=== PATIENT | female | born 1975 | race Caucasian/White ===

== ENCOUNTER 2017-04-07 16:26 | Observation (INO) ==
--- NOTE | 2017-04-07 16:43 | Emergency Department Note ---
Disposition Clinical Impression: Seizure, Abnormal EKG Chest pain Qualifiers: Chest pain type: unspecified Qualified Code(s): R07.9 - Chest pain, unspecified Disposition: Admitted As Inpatient Condition: Fair Referrals: NONE,PCP [Non-Partnered Physician] - Forms: ED Satisfaction Letter Time of Disposition: 19:48 Chest Pain HPI - General Chief Complaint: ED Chest Pain Stated Complaint: chest pain Time Seen by Provider: 04/07/17 16:26 Source: patient, EMS Mode of arrival: EMS Limitations: no limitations Vital Signs Reviewed: Yes Nursing Notes Reviewed: Yes - History of Present Illness HPI Narrative: Patient is a 41-year-old female with past medical history of seizures. She follows with Dr. Avalos, takes gabapentin chronically. She does not take any other medications for seizures. She says that she has one several months without seizures. However, 3 weeks ago, she had a tonic-clonic seizure. She also had a seizure today around 1 PM. This was witnessed by her . notes tonic-clonic seizure activity for a couple minutes, the patient did not hit her head, did not hit her neck. He said that he walked in, patient was staring into space, appeared confused, he helped lay her down and then she went into tonic-clonic motion. She did not lose bowel or bladder control, did not bite her tongue. She is currently postictal on presentation via EMS. said that usually with seizures, he keeps her home until she clears her postictal state. However, the patient was complaining of generalized chest pain so he brought her in for evaluation. He does note that she has fractured her sternum in the past during a seizure. The patient herself denies any shortness breath, nausea, vomiting, fevers, diarrhea, abdominal pain. Severity scale (1-10): 5 - Related Data Allergies Allergy/AdvReac Type Severity Reaction Status Date / Time phenazopyridine Allergy Rash Verified 09/01/15 14:27 [From Pyridium] sulfamethoxazole Allergy Rash Verified 09/01/15 14:27 [From Bactrim] trimethoprim [From Bactrim] Allergy Rash Verified 09/01/15 14:27 NSAIDS (Non-Steroidal AdvReac See Verified 09/01/15 14:27 Anti-Inflamma Comments All systems ED: reviewed and negative except as stated. Constitutional: Denies: fever Cardiovascular: Reports: chest pain. Denies: palpitations Respiratory: Denies: cough, dyspnea, wheezes Gastrointestinal: Denies: abdominal pain, nausea, vomiting, diarrhea Musculoskeletal: Reports: neck pain Neurological: Denies: headache, weakness, numbness, paresthesias Chest Pain PMH - Past Medical History Medical history: Reports: hypertension, seizures Psychiatric history: Reports: depression - Social History Smoking Status: Former smoker Alcohol use: Reports: none Drug use: Reports: none Physical Exam - General Limitations: no limitations General appearance: alert, in no apparent distress - Head Head exam: atraumatic, normocephalic, normal inspection - Eye Eye exam: Present: normal appearance, PERRL, EOMI - ENT ENT exam: normal exam, normal oropharynx, mucous membranes moist - Neck Neck exam: Present: normal inspection, full ROM, trachea midline, tenderness ( paraspinal muscle and trapezius muscle tenderness bialterally. ) - Chest Chest inspection: Present: normal inspection, symmetric chest wall rise, tenderness (generalzied tenderness of entire chest, reproduces the pain that patient is experiencing) - Respiratory Respiratory exam: Present: normal lung sounds bilaterally - Cardiovascular Cardiovascular exam: Present: regular rate, normal rhythm, normal heart sounds - Abdominal Exam Abdominal exam: Present: soft, Non-Tender. Absent: tenderness, distention, guarding, rebound, rigidity - Extremities Exam Extremities exam: Present: normal inspection, full ROM. Absent: tenderness, pedal edema - Neurological Exam Neurological exam: Present: alert, oriented X3, other (mildly slow at responding to questions, but alert and oriented x 3). Absent: motor sensory deficit - Psychiatric Psychiatric exam: Present: normal affect, normal mood - Skin Skin exam: Present: warm, dry, intact, normal color Course Course Narrative: Vitals within normal limits. No focal neurologic deficit on exam. Patient is alert and oriented 3. However, she is mildly slow in answering questions. She has reproducible chest pain on exam. This is likely from muscle contractions during her seizure. However, we will obtain EKG and chest x-ray. is at bedside and is agreeable with this plan. 19:25 chest x-ray negative for any acute cardiopulmonary process or obvious fracture. CBC and BMP within normal limits. Troponin negative at 0.00. EKG and repeat EKG showed ST elevation in lead 3, aVF, V5, V6. However, these elevations were not greater than or equal to 1 mm. These EKGs were sent to and discussed with Dr. Bethea, he did not feel that the EKG met STEMI criteria at this time. He believed that his possibly secondary to postictal state. He recommended that the patient be admitted, given aspirin and started on a heparin drip just in case. We will act as a consult in the morning. Will admit to medicine for further care. Chest X-Ray 04/07/17 16:43 IMPRESSION: No acute cardiopulmonary disease. D/ / 04/07/2017 17:02:41 Chaka Eckert MD / [facility] Interpreting Provider: Chaka Eckert MD Vital Signs Temperature 98.2 F 04/07/17 16:33 Pulse Rate 72 04/07/17 16:33 Respiratory Rate 18 04/07/17 16:33 Blood Pressure 103/71 04/07/17 16:33 O2 Sat by Pulse Oximetry 98 04/07/17 16:33 Temperature 98.2 F 04/07/17 16:33 Pulse Rate 72 04/07/17 16:33 Respiratory Rate 18 04/07/17 16:33 Blood Pressure 103/71 04/07/17 16:33 O2 Sat by Pulse Oximetry 98 04/07/17 16:33 Oxygen Delivery Oxygen Delivery Room Air Chest Pain - MDM Narrative Medical decision making narrative: chest x-ray negative for any acute cardiopulmonary process or obvious fracture. CBC and BMP within normal limits. Troponin negative at 0.00. EKG and repeat EKG showed ST elevation in lead 3, aVF, V5, V6. However, these elevations were not greater than or equal to 1 mm. These EKGs were sent to and discussed with Dr. Bethea, he did not feel that the EKG met STEMI criteria at this time. He believed that his possibly secondary to postictal state. He recommended that the patient be admitted, given aspirin and started on a heparin drip just in case. We will act as a consult in the morning. Will admit to medicine for further care. - Medical Records Medical records reviewed: Yes I reviewed the patient's medical records. - Lab Data Lab results reviewed: Yes I reviewed the patient's lab results. Result diagrams: 04/07/17 17:26 04/07/17 17:26 Lab Results 04/07/17 04/07/17 04/07/17 Range/Units 17:26 17:26 17:26 WBC 7.7 (4.3-11.1) K/mcL RBC 4.24 (3.82-4.97) M/mcL Hgb 11.7 (11.5-15.4) g/dL Hct 36.7 (35.3-44.9) % MCV 86.6 (83.0-100.0) fL MCH 27.6 L (28.0-33.3) pg MCHC 31.9 (31.6-35.5) g/dL RDW 13.2 (11.5-14.5) % Plt Count 217 (140-400) K/mcL MPV 10.1 (9.4-12.4) fL Immature Gran % 0.3 (0-4) % Seg Neutrophils % 74.5 % Lymphocytes % 19.3 % Monocytes % 4.8 % Eosinophils % 0.6 % Basophils % 0.5 % Neutrophils # 5.7 (1.6-8.9) K/mcL Lymphocytes # 1.5 (0.6-4.6) K/mcL Monocytes # 0.4 (0.0-1.3) K/mcL Eosinophils # 0.1 (0.0-0.6) K/mcL Basophils # 0.0 (0.0-0.2) K/mcL Sodium 138 (136-145) mEq/L Potassium 4.4 (3.5-4.5) mEq/L Chloride 108 (98-109) mEq/L Carbon Dioxide 24 (19-29) mEq/L BUN 14 (7-20) mg/dL Creatinine 0.85 (0.57-1.11) mg/dL Est GFR ( Amer) > 60 (> 60) Est GFR (Non-Af Amer) > 60 (> 60) BUN/Creatinine Ratio 16 (6-26) Glucose 90 (70-99) mg/dL Calculated Osmolality 286 (280-300) Calcium 8.7 (8.6-10.8) mg/dL Troponin I 0.00 (0-0.03) ng/mL - Radiology Data Radiology results reviewed: Yes I reviewed the patient's radiology results. Chest X-Ray 04/07/17 16:43 IMPRESSION: No acute cardiopulmonary disease. D/ / 04/07/2017 17:02:41 Chaka Eckert MD / [facility] Interpreting Provider: Chaka Eckert MD - EKG Data EKG attestation: Yes I reviewed and interpreted this EKG. EKG results narrative: 04/07/2017 at 16:42. Normal sinus rhythm. Rate 65. OH 142. QRS 88. QTC 383. There was ST elevation in lead 3, aVF, V5, V6, however, they were not greater or equal to 1 mm. No reciprocal changes. 04/07/2017 at 18:22. Sinus bradycardia. Rate 57. OH 146. QRS 84. QTC 392. ST elevation in 3, aVF, V5, V6 these elevations are not greater than 1 mm, no reciprocal changes. Julita - Julita Situation: Demographics, MOA Background: Presenting Complaint, Relevant PMH, Meds, & Allergies Assessment: Vital Signs, Course and respsone to treatment, Exam Concerns, Patient/Family Expectation, Pertinant Lab Results Recommendation: Barrier(s) to disposition, Recommendation based on pending studies, treatments, or consults Julita Report Given to: Dr. Sundar Cancino Repor Time: 19:48
--- NOTE | 2017-04-07 17:09 | Emergency Department Note ---
START Narrative - START START: I examined this patient and my medical decision-making was reviewed with the Resident Physician. I agree with the documented findings, disposition and treatment plan as described except to the extent set forth below. 41-year-old female presents emergency room after a seizure. Last a few minutes at home and was witnessed by family members. She has a history of seizure disorders. She takes Neurontin for this. She did not take it today. Patient' s been complaining of chest discomfort secondary to her seizure. She states this is normal for her after a seizure that she has had a previous sternal fracture. The seizures seem to mimic or exacerbate old pain. Her EKG shows some questionable ST elevation in leads 3 and aVF. She is not having any cardiac chest pain. All of her chest discomfort seems to be more musculoskeletal in nature. She has no other associated symptoms to indicate an ACS presentation. She had no chest pain prior to her seizure today. She did not fall. There is no trauma today. We will check some cardiac labs nonetheless.
[2017-04-07 17:38] LABS: Basophils % 0.5 %; Eosinophils # 0.1 K/mcL (0.0-0.6); Eosinophils % 0.6 %; Hematocrit 36.7 % (35.3-44.9); Hemoglobin 11.7 g/dL (11.5-15.4); Immature Granulocytes % 0.3 % (0-4); Lymphocytes # 1.5 K/mcL (0.6-4.6); Lymphocytes % 19.3 %; Mean Corpuscular HGB Conc 31.9 g/dL (31.6-35.5); Mean Corpuscular Hemoglobin 27.6 pg (28.0-33.3); Mean Corpuscular Volume 86.6 fL (83.0-100.0); Mean Platelet Volume 10.1 fL (9.4-12.4); Monocytes # 0.4 K/mcL (0.0-1.3); Monocytes % 4.8 %; Neutrophils # 5.7 K/mcL (1.6-8.9); Platelet Count 217 K/mcL (140-400); Red Blood Count 4.24 M/mcL (3.82-4.97); Red Cell Distribution Width 13.2 % (11.5-14.5); Segmented Neutrophils % 74.5 %
[2017-04-07] MEDS ORDERED: *HR* Morphine 2 MG/ML SYRINGE IVP ONE ×2 (17:45→19:21)
[2017-04-07 17:47] LABS: BUN/Creatinine Ratio 16 (6-26); Blood Urea Nitrogen 14 mg/dL (7-20); Calcium 8.7 mg/dL (8.6-10.8); Carbon Dioxide 24 mEq/L (19-29); Chloride 108 mEq/L (98-109); Glucose 90 mg/dL (70-99); Osmolality,Calculated 286 (280-300); Potassium 4.4 mEq/L (3.5-4.5); Sodium 138 mEq/L (136-145); eGFR For African Americans > 60 (> 60); eGFR For Non-African Americans > 60 (> 60)
[2017-04-07] MEDS ORDERED: *HR* Heparin 5,000 UNIT/ML VIAL IVP ONE (19:22)
[2017-04-07] MEDS ORDERED: *HR* Heparin 5,000 UNIT/ML VIAL IVP PRN ×2 (19:22)
[2017-04-07] MEDS ORDERED: Heparin 25,000 UNIT/500 ML D5W 25,000 UNIT/500 ML MLS IVC SCH (19:30)
[2017-04-07] MEDS ORDERED: Aspirin 325 MG TABLET PO ONE (19:43)
--- NOTE | 2017-04-07 19:55 | Internal Med History&Physical ---
Date of Encounter: 04/07/17 Time of Encounter: 19:55 Assessment and Plan (1) Chest pain Current visit: Yes Status: Acute CXR negative for any acute cardiopulmonary process or obvious fracture. Patient previously fractured her sternum a seizure. Chest pain reproducible with chest palpation on exam. Given Flexeril. Patient given ASA. Initial Troponin negative at 0.00, second troponin 0.01 EKG revealed less than or equal to [address] elevation in lead 3, aVF, V5, V6. EKGs findings sent to and discussed with Cardiology/ Dr. Bethea, he did not feel that the EKG met STEMI criteria at this time. 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 Continue to trend serial troponins Cardiology consulted Qualifiers: Chest pain type: unspecified Qualified Code(s): R07.9 - Chest pain, unspecified (2) Seizure Current visit: Yes Status: Acute Her last seizure was 3 weeks ago and she is currently on Gabapentin. Her neurologist is Dr. Avalos and she reports seizures due to hypoglycemia in the past. CT brain negative Continue home Gabapentin Continue accu checks Ativan prn seizures Neurology consulted (3) DVT prophylaxis Current visit: Yes Status: Acute Heparin ggt Internal Medicine - H&P: HPI Chief complaint: CP Admitted From: Home Plans for Post Hospital Care: Home History of present illness: Ms. Joy is a 41 year old female with a PMH of seizure disorder, migraines, cardiac ablation, HTN, gastric bypass, and depression that presented from home complaining of chest pain after having a seizure prior to arrival. Her reported patient was staring into space, appeared confused, and then started having tonic-clonic motion for a couple minutes after he lowered her to the floor. Her reported usually being able to monitor her at home after a seizure until her postical state clears but this time he was concerned because she reported constant, generalized 5/10 severity chest pain that radiated to her bilateral shoulders. Movement makes CP worse and patient reports significance amount of stress today related to school. Of note, patient previously fractured her sternum a seizure. Her last seizure was 3 weeks ago and she is currently on Gabapentin. Her neurologist is Dr. Avalos and she reports seizures due to hypoglycemia in the past. 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 Patient denies fever, chills, shortness breath, nausea, vomiting, diarrhea, abdominal pain, loss of bowel or bladder control, biting her tongue, h/o blood clots, or any head or neck trauma. Past Med Surg Social Fam HX - Past Medical History Medical history: hypertension, seizures Psychiatric history: depression - Past Surgical History Surgical History: other (ruptured IVC filter removal, cardiac ablation), bariatric surgery - Social History Smoking Status: Former smoker Smokeless Tobacco Status: No Alcohol use: none Drug use: none - Family History Mother Living Status: Age at : 50 Cause of : Kidney Failure Hx Family Cardiac Disorders: Yes (CHF, NM, HTN, Pacemaker) Hx Family Respiratory Disorders: No Hx Family Cancer: No Hx Family GI Disorders: No Hx Family Genitourinary Disorders: Yes (Kidney Failure) Hx Family Endocrine Disorder: Yes (Thyroid disease) Hx Family Musculoskeletal Disorders: No Hx Family Neuromuscular Disorders: No Hx Family Neurologic Disorders: No Hx Family HEENT Disorders: No Hx Family Autoimmune Disorders: No Hx Family Reproductive Disorders: No Hx Family Psychosocial Disorders: No Hx Family Medical Disorders: No Maternal Grandmother Hx Family Cardiac Disorders: Yes (Valve replacement) Hx Family Respiratory Disorders: No Hx Family Cancer: Yes (Leukemia) Hx Family GI Disorders: No Hx Family Genitourinary Disorders: No Hx Family Endocrine Disorder: Yes (DM) Hx Family Musculoskeletal Disorders: No Hx Family Neuromuscular Disorders: No Hx Family Neurologic Disorders: No Hx Family HEENT Disorders: No Hx Family Autoimmune Disorders: No Hx Family Reproductive Disorders: No Hx Family Psychosocial Disorders: No Hx Family Medical Disorders: No Father Hx Family Cardiac Disorders: Yes Paternal Grandfather Hx Family Respiratory Disorders: Yes (TB) Internal Medicine - H&P: Meds Gabapentin [Neurontin] 300 mg PO BID 04/07/17 [History] Metoprolol XL (24 HR) Succ [Toprol XL] 25 mg PO DAILY 04/07/17 [History] Omeprazole [PriLOSEC] 20 mg PO DAILY 04/07/17 [History] 3 Allergy/AdvReac Type Severity Reaction Status Date / Time phenazopyridine Allergy Rash Verified 09/01/15 14:27 [From Pyridium] sulfamethoxazole Allergy Rash Verified 09/01/15 14:27 [From Bactrim] trimethoprim [From Bactrim] Allergy Rash Verified 09/01/15 14:27 NSAIDS (Non-Steroidal AdvReac See Verified 09/01/15 14:27 Anti-Inflamma Comments All Systems PM: A 10-system review of systems was performed and is negative for pertinent findings except as documented above in the HPI. - Constitutional Constitutional: weakness, no anorexia, no chills, no fever(s), no falls, no weight gain, no weight loss - EENT Eyes: no change in vision, no loss of vision Nose, mouth and throat: no bleeding gums, no epistaxis, no mouth lesions, no neck mass, no neck pain, no tongue swelling - Cardiovascular Cardiovascular ROS IM: chest pain, palpitations - Respiratory Respiratory: no dyspnea, no excessive phlegm production - Gastrointestinal Gastrointestinal: no abdominal pain, no diarrhea, no nausea, no vomiting - Genitourinary Genitourinary: no dysuria, no urinary frequency, no urinary urgency - Musculoskeletal Musculoskeletal ROS IM: back pain, no numbness, no tingling - Integumentary Integumentary IM: no erythema, no new lesions, no rash - Neurological Neurological ROS: convulsions, no abnormal hearing, no loss of vision, no numbness, no paresthesias, no weakness - Psychiatric Psychiatric: anxiety, no depression - Endocrine Endocrine IM: no polydipsia, no polyphagia, no polyuria - Allergic/Immunologic Allergic/Immunologic: no tongue swelling - Constitutional Vitals: Temp Pulse Resp BP Pulse Ox 98.2 F 72 18 103/71 98 04/07/17 16:33 04/07/17 16:33 04/07/17 16:33 04/07/17 16:33 04/07/17 16:33 General appearance: Present: cooperative, mild distress, A&O X 3, pleasant, answers questions appropriately - Head Head exam: Present: atraumatic, normal inspection, normocephalic - Eye Eye exam: Present: EOMI, PERRL - ENT ENT exam: Present: mucous membranes moist, normal oropharynx - Neck Neck exam general surgery: Present: normal inspection, supple. Absent: lymphadenopathy, tenderness, nuchal rigidity - Respiratory Respiratory exam: Present: CTAB. Absent: wheezes - Cardiovascular Cardiovascular exam: Present: RRR, +S1, +S2 Additional comments: mild chest wall TTP posteriorly - GI/Abdominal GI/Abdominal exam: Present: normal bowel sounds, soft. Absent: guarding, tenderness - Extremities Exam Extremities exam: Present: normal capillary refill, warm. Absent: pedal edema, tenderness - Back Exam Back exam: Present: normal inspection, paraspinal tenderness, tenderness (T- spine) - Neurological Exam Neurological exam: Present: alert, no focal deficits, strengths equal and symetr throughout. Absent: altered, speech deficit - Psychiatric Psychiatric exam: Present: anxious, normal mood - Skin Skin exam: Present: dry, intact, warm Internal Med - H&P Results - Labs CBC & Chem 7: 04/07/17 19:46 04/07/17 17:26 Labs: Short CBC 04/07/17 Range/Units 17:26 WBC 7.7 (4.3-11.1) K/mcL Hgb 11.7 (11.5-15.4) g/dL Hct 36.7 (35.3-44.9) % Plt Count 217 (140-400) K/mcL Neutrophils # 5.7 (1.6-8.9) K/mcL BMP 04/07/17 17:26 Sodium 138 Potassium 4.4 Chloride 108 Carbon Dioxide 24 BUN 14 Creatinine 0.85 Glucose 90 Calcium 8.7 Cardiac Enzymes 04/07/17 Range/Units 17:26 Troponin I 0.00 (0-0.03) ng/mL - EKG Data -: EKG Interpreted by Myself EKG shows normal: sinus rhythm (Rate 65. [place] 142. QRS 88. QTC 383. ), axis, intervals, QRS complexes, ST-T waves (less than than or equal to [address] elevation in leads 3, V5, V6, and aVF) - Impressions ITS Impressions Chest X-Ray 04/07/17 16:43 IMPRESSION: No acute cardiopulmonary disease. D/ / 04/07/2017 17:02:41 Chaka Eckert MD / [facility] Interpreting Provider: Chaka Eckert MD
[2017-04-07] MEDS ORDERED: Nitroglycerin 0.4 MG TAB.SUBL SL PRN (20:14)
[2017-04-07 20:31] LABS: Mean Corpuscular HGB Conc 32.4 g/dL (31.6-35.5); Mean Corpuscular Hemoglobin 28.1 pg (28.0-33.3); Mean Platelet Volume 10.4 fL (9.4-12.4); Platelet Count 189 K/mcL (140-400); Red Blood Count 3.91 M/mcL (3.82-4.97); Red Cell Distribution Width 13.6 % (11.5-14.5)
[2017-04-07 20:37] LABS: INR 1.1; Prothrombin Time 11.6 Seconds (9.4-12.1)
[2017-04-07 20:39] LABS: Activated Partial Thrombo Time 26.6 Seconds (26.0-36.0)
[2017-04-07] MEDS ORDERED: *HR* LORazepam 2 MG/ML VIAL IVP PRN (21:39)
[2017-04-07] MEDS: Gabapentin 300 MG CAPSULE PO SCH (22:11)
--- NOTE | 2017-04-07 23:14 | Event Note ---
Date of Encounter: 04/07/17 Time of Encounter: 23:12 Patient and examined with medical transcriptionist. Presents with 2 minute episode of generalized tonic clonic seizure followed by post-ictal phase. She is being admitted because of subtle concave upwards ST segment elevation 1 mm in the infralateral leads. There is no reciprocal ST segment depression. Doubt ischemic etiology. Cardiology service have evaluated the patient over the phone recommend starting heparin drip for now. Will continue monitoring and follow serial cardiac markers. We ask neurology also to see the patient
[2017-04-07] MEDS: *HR* Morphine 2 MG/ML SYRINGE IVP PRN (23:19)
[2017-04-08] MEDS: *HR* Morphine 2 MG/ML SYRINGE IVP PRN ×2 (02:48→05:32)
[2017-04-08 04:36] LABS: Basophils % 0.5 %; Eosinophils # 0.1 K/mcL (0.0-0.6); Eosinophils % 1.2 %; Hematocrit 35.3 % (35.3-44.9); Hemoglobin 11.3 g/dL (11.5-15.4); Immature Granulocytes % 0.2 % (0-4); Lymphocytes # 2.3 K/mcL (0.6-4.6); Lymphocytes % 37.6 %; Mean Corpuscular Hemoglobin 28.3 pg (28.0-33.3); Mean Corpuscular Volume 88.3 fL (83.0-100.0); Mean Platelet Volume 10.8 fL (9.4-12.4); Monocytes # 0.3 K/mcL (0.0-1.3); Monocytes % 5.5 %; Neutrophils # 3.3 K/mcL (1.6-8.9); Platelet Count 176 K/mcL (140-400); Red Cell Distribution Width 13.5 % (11.5-14.5)
[2017-04-08 04:54] LABS: Alanine Aminotransferase 10 Units/L (0-55); Albumin 3.1 g/dL (3.5-5.0); Alkaline Phosphatase 71 Units/L (38-126); Aspartate Amino Transferase 11 Units/L (5-34); BUN/Creatinine Ratio 19 (6-26); Bilirubin,Total 0.2 mg/dL (0.2-1.2); Blood Urea Nitrogen 14 mg/dL (7-20); Calcium 8.5 mg/dL (8.6-10.8); Carbon Dioxide 24 mEq/L (19-29); Chloride 108 mEq/L (98-109); Globulin 3.1 g/dL (2.4-3.5); Glucose 80 mg/dL (70-99); Osmolality,Calculated 287 (280-300); Potassium 3.8 mEq/L (3.5-4.5); Sodium 139 mEq/L (136-145); Total Protein 6.2 g/dL (6.0-8.3); eGFR For African Americans > 60 (> 60); eGFR For Non-African Americans > 60 (> 60)
[2017-04-08] MEDS: Famotidine 20 MG/2 ML VIAL IVP SCH ×2 (05:32→17:26)
[2017-04-08 05:45] LABS: Activated Partial Thrombo Time 71.1 Seconds (26.0-36.0)
[2017-04-08] MEDS ORDERED: *HR* OxyCODONE Immed Rel 5 MG TABLET PO ONE (08:32)
[2017-04-08 08:52] LABS: INR 1.1
--- NOTE | 2017-04-08 10:22 | Neurology - Consult Note ---
<Patrick Bishop - Last Filed: 04/08/17 10:11> Date of Encounter: 04/08/17 Time of Encounter: 09:00 Assessment and Plan (1) Seizure disorder Current Visit: Yes Status: Acute Patient presents to [facility] to have a witnessed seizure at home. Similar to previous of that she has had, but more severe. Reportedly had loss of consciousness with convulsions. Postictal state of roughly 1 hour. No report of trauma during event. Physical exam currently unremarkable. Patient has seizure disorder and is currently under the care of Dr. Avalos. She takes 300 mg gabapentin twice a day. She had previously taken a seizure medication (she thinks Depakote) was concerned because of sedation and her medication was changed gabapentin. She originally taken the gabapentin 3 times a day, but was again concerned about sedation and this was reduced to twice a day. Consider addition of antiseizure medication Keppra or Depakote, to be discussed with patient Follow-up with neurology following discharge History of Present Illness Chief complaint: Seizure and chest pain HPI: Ms. Joy is a 41 year old female with past medical history of seizures, cardiac ablation, and open-heart surgery to remove. IVC filter present to [facility] yesterday evening after having a witnessed seizure at home. Patient states that she woke early yesterday to work on a paper for college and also been under some stress recently as her son is in [facility] being treated for endocarditis following IV drug use. After working on her paper she was getting ready to visit her son in hospital and suffered a seizure at about noon that was witnessed by her . Although she does not report the incident, her had described with her. She stated that her hand with around quickly and she brought her hands to her chest and started convulsing. Her was present and lowered her to the floor before she could fall. She describes having a period of about one hour during which she does not remember but reportedly disoriented, confused, and having reported memory problems. She denies having any issues with incontinence or tongue biting in this. She states that following this episode she felt pain in her neck, head, and chest is described as an aching. She states this was worse than her usual. Her last reported seizure was 3 weeks ago and in talking with her she states her seizures following a similar course, but this seizure yesterday was one of the more severe. She denies ever having any issues with incontinence or tongue biting reports that she has noticed her seizures associated with hypoglycemia typically. She reports that she has a chronic problem with seizures for which she had taken a seizure medication in the past (she thinks Depakote) but had stopped taking his seizure medication due to her concerns with sedation. She had been placed on gabapentin 3 times a day, but again complained of sedation and this was lowered to twice a day. Past Med Surg Social Fam HX - Past Medical History Medical history: hypertension, seizures Psychiatric history: depression - Past Surgical History Surgical History: other (ruptured IVC filter removal, cardiac ablation), bariatric surgery - Social History Smoking Status: Former smoker Smokeless Tobacco Status: No Alcohol use: none Drug use: none - Family History Mother Living Status: Age at : 50 Cause of : Kidney Failure Hx Family Cardiac Disorders: Yes (CHF, [place], HTN, Pacemaker) Hx Family Respiratory Disorders: No Hx Family Cancer: No Hx Family GI Disorders: No Hx Family Genitourinary Disorders: Yes (Kidney Failure) Hx Family Endocrine Disorder: Yes (Thyroid disease) Hx Family Musculoskeletal Disorders: No Hx Family Neuromuscular Disorders: No Hx Family Neurologic Disorders: No Hx Family HEENT Disorders: No Hx Family Autoimmune Disorders: No Hx Family Reproductive Disorders: No Hx Family Psychosocial Disorders: No Hx Family Medical Disorders: No Maternal Grandmother Hx Family Cardiac Disorders: Yes (Valve replacement) Hx Family Respiratory Disorders: No Hx Family Cancer: Yes (Leukemia) Hx Family GI Disorders: No Hx Family Genitourinary Disorders: No Hx Family Endocrine Disorder: Yes (DM) Hx Family Musculoskeletal Disorders: No Hx Family Neuromuscular Disorders: No Hx Family Neurologic Disorders: No Hx Family HEENT Disorders: No Hx Family Autoimmune Disorders: No Hx Family Reproductive Disorders: No Hx Family Psychosocial Disorders: No Hx Family Medical Disorders: No Father Hx Family Cardiac Disorders: Yes Paternal Grandfather Hx Family Respiratory Disorders: Yes (TB) Medications and Allergies Gabapentin [Neurontin] 300 mg PO BID 04/07/17 [History] Metoprolol XL (24 HR) Succ [Toprol XL] 25 mg PO DAILY 04/07/17 [History] Omeprazole [PriLOSEC] 20 mg PO DAILY 04/07/17 [History] 3 Allergy/AdvReac Type Severity Reaction Status Date / Time phenazopyridine Allergy Rash Verified 09/01/15 14:27 [From Pyridium] sulfamethoxazole Allergy Rash Verified 09/01/15 14:27 [From Bactrim] trimethoprim [From Bactrim] Allergy Rash Verified 09/01/15 14:27 NSAIDS (Non-Steroidal AdvReac See Verified 09/01/15 14:27 Anti-Inflamma Comments Review of Systems: Gen: Denies fever, denies chills, denies weakness CV: Reports chest pain as per history of present illness, reports minor palpitations following seizure event Resp: Denies shortness of breath GI: Denies nausea, denies vomiting, denies abdominal pain MSK: Reports soreness in neck, head, and chest Neuro: Reports improving headache from neck and seizure, reports previous confusion as per history of present illness, denies focal weakness, denies numbness, denies tingling, denies vision changes, reports seizure Skin: Denies bruising, denies rash Physical Examination - Vital Signs Vital Signs: Initial Vital Signs Temp Pulse Resp BP Pulse Ox 98.2 F 72 18 103/71 98 04/07/17 16:33 04/07/17 16:33 04/07/17 16:33 04/07/17 16:33 04/07/17 16:33 - Exam Exam: General: Cooperative, pleasant, no acute distress, alert and oriented 3, answers questions appropriately HEENT: Normocephalic, atraumatic, neck supple but tender to palpation and movement, trachea midline, Conjunctiva pink, sclera anicteric, EOMI, PERRL, oral mucosa moist, no orophargeal erythema or exudates, no tongue lacerations observed Respiratory: No accessory muscle usage, clear to auscultation bilaterally, no wheezes/rhonchi/rales appreciated Cardiovascular: Regular rate and rhythm, S1 and S2 present, no murmurs/rubs/ gallops/clicks appreciated Extremities: No calf tenderness, no pedal edema appreciated, warm, lower extremity pulses palpable and symmetrical Neurological: Alert and oriented 3, no facial droop, no focal deficits, cranial nerves II through XII intact bilaterally, strength 5/5 in upper and lower extremities bilaterally, reflexes 2/4 in Achilles, patellar, brachioradialis, biceps, triceps, incision and gross touch intact in upper large ovaries bilaterally Skin: Dry, intact, normal color Results - Laboratory Findings CBC and BMP: 04/08/17 03:19 04/08/17 03:19 Abnormal lab findings: Abnormal lab results Hgb 11.3 g/dL (11.5-15.4) L 04/08/17 03:19 APTT 71.1 Seconds (26.0-36.0) H D 04/08/17 05:02 Calcium 8.5 mg/dL (8.6-10.8) L 04/08/17 03:19 Albumin 3.1 g/dL (3.5-5.0) L 04/08/17 03:19 Albumin/Globulin Ratio 1.0 (1.1-2.2) L 04/08/17 03:19 Consult Discharge Plan - Plan Referrals: Nando Brunson DO [Primary Care Provider] - <Mariam Jacobo - Last Filed: 04/08/17 13:17> Date of Encounter: 04/08/17 Time of Encounter: 13:12 Assessment and Plan (1) Seizure disorder Current Visit: Yes Status: Acute Patient seen and examined. Patient known to our office and she has been seeing Dr. 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 Been taking gabapentin 300mg bid for her seizures and has been compliant with therapy. She developed witnessed typical seizure, with some tensing and jerking of both arms and the spell was proceed by warning symptoms. She has no recollection of the event. no tongue biting and urinary incontinence reported. Is having nonfocal neurological examination. Mental status back to normal baseline. Discussed with Dr. Holger Elena who recommend keeping her on Gabapentin 300mg bid and follow up with him as an outpatient withing 1-2 weeks after discharged. Okay to discharge home from neurology perspective. Cardiology is work up her for abnormal EKG right now. I agree with Dr. Patrick Bishop's history taking, physical examination, assessment and plan. History of Present Illness HPI: Ms. Joy is a 41 year old female All Systems: A 10-system review of systems was performed and is negative for pertinent findings except as documented above in the HPI. Physical Examination - Vital Signs Vital Signs: Initial Vital Signs Temp Pulse Resp BP Pulse Ox 98.2 F 72 18 103/71 98 04/07/17 16:33 04/07/17 16:33 04/07/17 16:33 04/07/17 16:33 04/07/17 16:33 Results - Laboratory Findings CBC and BMP: 04/08/17 03:19 04/08/17 03:19 Abnormal lab findings: Abnormal lab results Hgb 11.3 g/dL (11.5-15.4) L 04/08/17 03:19 APTT 64.7 Seconds (26.0-36.0) H 04/08/17 11:02 Calcium 8.5 mg/dL (8.6-10.8) L 04/08/17 03:19 Albumin 3.1 g/dL (3.5-5.0) L 04/08/17 03:19 Albumin/Globulin Ratio 1.0 (1.1-2.2) L 04/08/17 03:19
--- NOTE | 2017-04-08 10:59 | Cardiology Progress Note ---
Date of Encounter: 04/08/17 Assessment and Plan Discussion w patient/family: The assessment and plan as outlined above was discussed with the patient and/or family members who expressed understanding and agreement. All questions were answered. Thank you for involving us in the care of your patient. Please call with any questions. Objective Vital Signs, Last 4 Hours Temp Pulse Resp BP Pulse Ox 04/08/17 07:38 98.3 F 63 17 102/69 98 Results 04/08/17 03:19 04/08/17 03:19 Lab Results 04/07/17 04/08/17 04/08/17 21:42 03:19 03:19 WBC 6.0 Hgb 11.3 L Hct 35.3 Plt Count 176 INR APTT Sodium Potassium Chloride Carbon Dioxide BUN Creatinine Glucose Calcium Magnesium Total Bilirubin AST ALT Alkaline Phosphatase Troponin I 0.01 0.00 04/08/17 04/08/17 03:19 05:02 WBC Hgb Hct Plt Count INR 1.1 APTT 71.1 H D Sodium 139 Potassium 3.8 Chloride 108 Carbon Dioxide 24 BUN 14 Creatinine 0.75 Glucose 80 Calcium 8.5 L Magnesium 2.0 Total Bilirubin 0.2 AST 11 ALT 10 Alkaline Phosphatase 71 Troponin I Consult Discharge Plan - Plan Referrals: Nando Brunson DO [Primary Care Provider] -
--- NOTE | 2017-04-08 11:05 | Cardiology Consult Note ---
Date of Encounter: 04/08/17 Time of Encounter: 10:00 Assessment and Plan (1) Chest pain Current Visit: Yes Status: Acute Patient is experiencing constant, generalized chest pain that radiates towards bilateral shoulders and neck since episode of tonic-clonic seizure yesterday afternoon. Chest pain worse with movement, inspiration, and pressure. Chest pain is also reproducible. EKG demonstrates NSR without signs of ischemia. Troponins negative x 3. Echo performed on 10/16/16 had EF = 65% with normal wall motion and normal valves. Open heart surgery was performed September 2015 for removal of IVC filter without residual fragments. We spoke with patient about possible stress test and she states that she would prefer to have it done outpatient. This is reasonable as chest pain is likely due to acute issues and non-cardiac etiology. We recommend a repeat EKG and will follow-up tomorrow. Qualifiers: Chest pain type: unspecified Qualified Code(s): R07.9 - Chest pain, unspecified (2) Seizure Current Visit: Yes Status: Acute The patient's last seizure was 3 weeks ago and she is currently on Gabapentin. Her neurologist is Dr. Avalos and she reports seizures due to hypoglycemia in the past. CT Head negative. Continue anti-seizure medications. Treat per neurology. (3) DVT prophylaxis Current Visit: Yes Status: Acute Continue with Heparin for DVT prophylaxis. Discussion w patient/family: The assessment and plan as outlined above was discussed with the patient and/or family members who expressed understanding and agreement. All questions were answered. Thank you for involving us in the care of your patient. Please call with any questions. History of Present Illness Consult date: 04/08/17 Consult reason: Atypical Chest pain s/p tonic-clonic seizure Chief complaint: Post-ictal seizure History of present illness: Ms. Joy is a 41 year old female with PMH of seizure disorder, migraines, HTN , depression, gastric bypass, 2x cardiac ablation secondary to Afib who presents with post-ictal atypical chest pain yesterday at noon. She also had open heart surgery to remove IVC fragments from rupture in August 2015. She explains that the chest pain is constant and dull at the sternum and radiates towards both shoulders. It gets worse with movement, inspiration and pressure, better with rest. She has similar chest pain after seizure episodes in the past , but it is more severe and lasting longer after this episode. She states that she believes the chest pain feels more muscular than cardiac. She denies lightheadedness, dizziness, syncope, visual changes, shortness of breath, nausea , vomiting, diarrhea, constipation, edema. Reports palpitations is common for her due to history of Afib. No difficulties with voiding or bowel movements. She had a negative stress test 2 years ago. CXR at this visit is negative for effusion or pneumothorax. Last echo performed 10/16/16 demonstrates EF = 65% with normal wall motion. Last LHC 09/01/15 due to fractured IVC on right ventricle and LLL. Past Med Surg Social Fam HX - Past Medical History Medical history: hypertension, seizures Psychiatric history: depression - Past Surgical History Surgical History: other (ruptured IVC filter removal, cardiac ablation), bariatric surgery - Social History Smoking Status: Former smoker Smokeless Tobacco Status: No Alcohol use: none Drug use: none - Family History Mother Living Status: Age at : 50 Cause of : Kidney Failure Hx Family Cardiac Disorders: Yes (CHF, [place], HTN, Pacemaker) Hx Family Respiratory Disorders: No Hx Family Cancer: No Hx Family GI Disorders: No Hx Family Genitourinary Disorders: Yes (Kidney Failure) Hx Family Endocrine Disorder: Yes (Thyroid disease) Hx Family Musculoskeletal Disorders: No Hx Family Neuromuscular Disorders: No Hx Family Neurologic Disorders: No Hx Family HEENT Disorders: No Hx Family Autoimmune Disorders: No Hx Family Reproductive Disorders: No Hx Family Psychosocial Disorders: No Hx Family Medical Disorders: No Maternal Grandmother Hx Family Cardiac Disorders: Yes (Valve replacement) Hx Family Respiratory Disorders: No Hx Family Cancer: Yes (Leukemia) Hx Family GI Disorders: No Hx Family Genitourinary Disorders: No Hx Family Endocrine Disorder: Yes (DM) Hx Family Musculoskeletal Disorders: No Hx Family Neuromuscular Disorders: No Hx Family Neurologic Disorders: No Hx Family HEENT Disorders: No Hx Family Autoimmune Disorders: No Hx Family Reproductive Disorders: No Hx Family Psychosocial Disorders: No Hx Family Medical Disorders: No Father Hx Family Cardiac Disorders: Yes Paternal Grandfather Hx Family Respiratory Disorders: Yes (TB) Medications and Allergies Gabapentin [Neurontin] 300 mg PO BID 04/07/17 [History] Metoprolol XL (24 HR) Succ [Toprol XL] 25 mg PO DAILY 04/07/17 [History] Omeprazole [PriLOSEC] 20 mg PO DAILY 04/07/17 [History] 3 Allergy/AdvReac Type Severity Reaction Status Date / Time phenazopyridine Allergy Rash Verified 09/01/15 14:27 [From Pyridium] sulfamethoxazole Allergy Rash Verified 09/01/15 14:27 [From Bactrim] trimethoprim [From Bactrim] Allergy Rash Verified 09/01/15 14:27 NSAIDS (Non-Steroidal AdvReac See Verified 09/01/15 14:27 Anti-Inflamma Comments All Systems Review: A 10-system review of systems was performed and is negative for pertinent findings except as documented above in the HPI. - Constitutional Constitutional: headache(s), no chills, no fever(s), no weakness - EENT Eyes: no blurred vision, no loss of vision, no pain Nose, mouth and throat: no sore throat - Cardiovascular Cardiovascular: chest pain at rest, chest pain with exertion, irregular heart rhythm, radiating jaw, neck or arm pain (chest pain radiating to bilateral shoulders and neck ), palpitations, no diaphoresis, no dyspnea at rest, no dyspnea on exertion, no leg edema, no lightheadedness, no syncope - Respiratory Respiratory: no cough, no dyspnea, no wheezing - Gastrointestinal Gastrointestinal: no abdominal pain, no constipation, no diarrhea - Genitourinary Genitourinary: no dysuria - Musculoskeletal Musculoskeletal: back pain - Integumentary Integumentary: no unusual bruising - Neurological Neurological: memory loss, no abnormal speech, no dizziness, no focal weakness, no loss of vision, no numbness (post-ictal), no syncope - Hematological/Lymphatic Hematologic/Lymphatic: no easy bleeding Physical Examination Vital Signs, Last 4 Hours Temp Pulse Resp BP Pulse Ox 04/08/17 07:38 98.3 F 63 17 102/69 98 General: Conversant, No Apparent Distress HEENT: Atraumatic, Normocephaly, Mucus Membranes Moist Neck: No JVD, Normal carotid pulses Cardiac: Reg Rate and Rhythm, Normal S1 and S2, No Murmur Lungs: Normal Breath Sounds, No Wheeze, Rales, Rhonchi Neuro: Alert and responsive, Other (right upper and lower extremity weakness +4/ 5. Decreased sensation at right upper and lower extremity. ) Abdomen: Soft, Non-Tender Skin: No rashes noted on visualized skin Musculoskeletal: No Chest Wall Tenderness Extremities: No Clubbing, No Cyanosis, No Edema, Normal Pulses Results 04/08/17 03:19 04/08/17 03:19 Lab Results 04/07/17 04/08/17 04/08/17 21:42 03:19 03:19 WBC 6.0 Hgb 11.3 L Hct 35.3 Plt Count 176 INR APTT Sodium Potassium Chloride Carbon Dioxide BUN Creatinine Glucose Calcium Magnesium Total Bilirubin AST ALT Alkaline Phosphatase Troponin I 0.01 0.00 04/08/17 04/08/17 03:19 05:02 WBC Hgb Hct Plt Count INR 1.1 APTT 71.1 H D Sodium 139 Potassium 3.8 Chloride 108 Carbon Dioxide 24 BUN 14 Creatinine 0.75 Glucose 80 Calcium 8.5 L Magnesium 2.0 Total Bilirubin 0.2 AST 11 ALT 10 Alkaline Phosphatase 71 Troponin I Consult Discharge Plan - Plan Referrals: Nando Brunson DO [Primary Care Provider] -
[2017-04-08] MEDS: Aspirin 81 MG TAB.CHEW PO SCH (11:50)
[2017-04-08] MEDS: Gabapentin 300 MG CAPSULE PO SCH ×2 (11:50→20:06)
--- NOTE | 2017-04-08 14:45 | Internal Med Progress Note ---
Date of Encounter: 04/08/17 Time of Encounter: 14:48 - Assessment and plan (1) Chest pain Current Visit: Yes Status: Acute Assessment and plan: Maci Bray's 41-year-old female with past medical history gastric bypass and seizure disorder who presented to [facility] on 04/08/2017 After having a seizure and with complaints of chest pain. She was placed in observation status for neurology evaluation and ACS rule out. Chest pain: presented with chest pain that started after seizure. CXR nonacute. Serial troponins negative. EKG revealed less than or equal to [address] elevation in lead 3, aVF, V5, V6. EKGs findings sent to and discussed with Cardiology/ Dr. Bethea in ED and not felt to be STEMI. ASA given on arrival. Heparin drip started. Evaluated by cardiology who recommended continue monitoring. Repeat EKG in a.m. Heparin drip stop. Qualifiers: Chest pain type: unspecified Qualified Code(s): R07.9 - Chest pain, unspecified (2) Seizure Current Visit: Yes Status: Acute Assessment and plan: per hx. follows with neurology. Gabapentin dose decrease to twice a day ( supposed to be 3 times a day however sedating therefore patient he creased dose) . Now with 2 breakthrough seizures in the 3 weeks prior to presentation. Evaluated by Dr. Jacobo (neurology) discussed case with Dr. Avalos (patient's neurologist) Recommended continuing current medication regimen with outpatient follow-up. No seizure recurrence while inpatient. (3) SVT (supraventricular tachycardia) Current Visit: Yes Status: Acute Assessment and plan: per hx. she has been intermittently bradycardic and BP borderline/soft. Continue home BB with hold parameters. Monitor on telemetry. (4) DVT prophylaxis Current Visit: Yes Status: Acute - Subjective Interval history: Seen and examined at bedside, patient is new to me. Information obtained from chart review and patient report. Patient says she overall feels better. Has not had any further seizure activity while inpatient. Still with intermittent chest pain that radiates to neck. No SOB, no AVD pain, no nausea vomiting or diarrhea - Constitutional Vitals: Temp Pulse Resp BP Pulse Ox 98.1 F 59 18 102/68 97 04/08/17 11:31 04/08/17 11:31 04/08/17 11:31 04/08/17 11:31 04/08/17 11:31 General appearance: Present: cooperative, mild distress, A&O X 3, pleasant, answers questions appropriately - Head Head exam: Present: atraumatic, normocephalic - Eye Eye exam: Present: PERRL, conjuntiva pink, sclera anicteric Pupils: Present: PERRL - Neck Neck exam general surgery: Present: supple, trachea midline. Absent: lymphadenopathy - Respiratory Respiratory exam: Present: CTAB. Absent: accessory muscle use, rales, rhonchi, wheezes - Cardiovascular Cardiovascular exam: Present: RRR, +S1, +S2. Absent: diastolic murmur, gallop, rubs, systolic murmur - GI/Abdominal GI/Abdominal exam: Present: normal bowel sounds, soft, no peritoneal signs. Absent: distended, tenderness - Extremities Exam Extremities exam: Present: warm, radial pulses palpable and symmetrical. Absent : calf tenderness, cyanotic, pedal edema - Neurological Exam Neurological exam: Present: CN II-XII intact, oriented X3, no focal deficits. Absent: pronater drift, facial droop, speech deficit - Skin Skin exam: Present: dry, intact Internal Medicine: Result - Labs CBC & Chem 7: 04/08/17 03:19 04/08/17 03:19 Labs: Short CBC 04/08/17 Range/Units 03:19 WBC 6.0 (4.3-11.1) K/mcL Hgb 11.3 L (11.5-15.4) g/dL Hct 35.3 (35.3-44.9) % Plt Count 176 (140-400) K/mcL Neutrophils # 3.3 (1.6-8.9) K/mcL BMP 04/08/17 03:19 Sodium 139 Potassium 3.8 Chloride 108 Carbon Dioxide 24 BUN 14 Creatinine 0.75 Glucose 80 Calcium 8.5 L Cardiac Enzymes 04/07/17 04/08/17 Range/Units 21:42 03:19 Troponin I 0.01 0.00 (0-0.03) ng/mL Liver Function 04/08/17 Range/Units 03:19 Total Bilirubin 0.2 (0.2-1.2) mg/dL AST 11 (5-34) Units/L ALT 10 (0-55) Units/L Alkaline Phosphatase 71 (38-126) Units/L Albumin 3.1 L (3.5-5.0) g/dL - ABG Interpretation ABG results: PT/INR, D-dimer PT 12.0 Seconds (9.4-12.1) 04/08/17 05:02 - Impressions Impressions Head CT 04/07/17 21:38 IMPRESSION: No acute intracranial abnormality. D/ / Francisco Pickett MD / Francisco Pickett MD Interpreting Provider: Francisco Pickett MD Consult Discharge Plan - Plan Referrals: Nando Brunson DO [Primary Care Provider] -
[2017-04-08] MEDS ORDERED: Ketorolac 30 MG/ML VIAL IVP ONE (14:51)
[2017-04-08 17:09] LABS: Bilirubin,Urine Negative (Negative); Blood,Urine Negative (Negative); Clarity,Urine Clear (Clear); Color,Urine Yellow (Yellow); Glucose,Urine (UA) Normal (Normal); Ketones,Urine Negative (Negative); Leukocyte Esterase,Urine Negative (Negative); Nitrite,Urine Negative (Negative); Protein,Urine Negative (Neg-Trace); Specific Gravity,Urine 1.011 (1.010-1.025); Urobilinogen,Urine Normal (Normal)
[2017-04-08 17:15] LABS: Amphetamine Screen,Urine Negative ng/mL (Cutoff=1000); Barbiturate Screen,Urine Negative ng/mL (Cutoff=200); Benzodiazepines Screen,Urine Negative ng/mL (Cutoff=200); Cannabinoid Screen,Urine Negative ng/mL (Cutoff = 50); Cocaine Screen,Urine Negative ng/mL (Cutoff= 300); Opiate Screen,Urine Positive ng/mL (Cutoff=300); Phencyclidine Screen,Urine Negative ng/mL (Cutoff=25)
--- NOTE | 2017-04-08 17:30 | Electrocardiograph Report ---
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
--- NOTE | 2017-04-08 17:31 | Electrocardiograph Report ---
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
[2017-04-08] MEDS: Acetaminophen 325 MG TABLET PO PRN (23:54)
[2017-04-09] MEDS ORDERED: 0.9 % Sodium Chloride 500 ML IVC ONE (04:46)
[2017-04-09] MEDS ORDERED: 0.9 % Sodium Chloride 1,000 ML ONE (04:48)
[2017-04-09] MEDS: Famotidine 20 MG/2 ML VIAL IVP SCH (04:55)
[2017-04-09] MEDS: *HR* Heparin 5,000 UNIT/ML VIAL SQ SCH ×2 (04:55→14:40)
[2017-04-09 07:05] LABS: Alanine Aminotransferase 10 Units/L (0-55); Albumin 2.8 g/dL (3.5-5.0); Albumin/Globulin Ratio 1.1 (1.1-2.2); Alkaline Phosphatase 62 Units/L (38-126); Aspartate Amino Transferase 9 Units/L (5-34); BUN/Creatinine Ratio 20 (6-26); Bilirubin,Total 0.3 mg/dL (0.2-1.2); Blood Urea Nitrogen 14 mg/dL (7-20); Calcium 8.1 mg/dL (8.6-10.8); Carbon Dioxide 26 mEq/L (19-29); Chloride 109 mEq/L (98-109); Globulin 2.6 g/dL (2.4-3.5); Glucose 77 mg/dL (70-99); Osmolality,Calculated 289 (280-300); Potassium 3.9 mEq/L (3.5-4.5); Sodium 140 mEq/L (136-145); Total Protein 5.4 g/dL (6.0-8.3); eGFR For African Americans > 60 (> 60); eGFR For Non-African Americans > 60 (> 60)
[2017-04-09 07:08] LABS: Hematocrit 32.3 % (35.3-44.9); Hemoglobin 10.2 g/dL (11.5-15.4); Mean Corpuscular HGB Conc 31.6 g/dL (31.6-35.5); Mean Corpuscular Hemoglobin 27.5 pg (28.0-33.3); Mean Corpuscular Volume 87.1 fL (83.0-100.0); Mean Platelet Volume 10.3 fL (9.4-12.4); Platelet Count 154 K/mcL (140-400); Red Blood Count 3.71 M/mcL (3.82-4.97); Red Cell Distribution Width 13.6 % (11.5-14.5)
[2017-04-09] MEDS: Aspirin 81 MG TAB.CHEW PO SCH (08:33)
[2017-04-09] MEDS: Gabapentin 300 MG CAPSULE PO SCH (08:33)
[2017-04-09] MEDS: Acetaminophen 325 MG TABLET PO PRN (08:39)
[2017-04-09] MEDS ORDERED: Metoprolol XL (24 HR) Succ 25 MG TAB.ER.24H PO SCH (09:00)
[2017-04-09] MEDS ORDERED: *HR* OxyCODONE Immed Rel 5 MG TABLET PO ONE (09:49)
[2017-04-09 11:06] VITALS: BP 108/72
--- NOTE | 2017-04-09 11:28 | Cardiology Progress Note ---
Date of Encounter: 04/09/17 Time of Encounter: 09:30 Assessment and Plan (1) Chest pain Current Visit: Yes Status: Acute Patient denies any chest pain today. Troponins negative x 3. Echo performed on had EF = 65% with normal wall motion and normal valves. Open heart surgery was performed September 2015 for removal of IVC filter without residual fragments. We spoke with patient about possible stress test and she states that she would prefer to have it done outpatient. This is reasonable as chest pain is likely due to acute issues and non-cardiac etiology. Repeat EKG is NSR. Patient is to follow-up on stress test outpatient. Cardiology is signing off. Please consult us again if needed. Thank you. Qualifiers: Chest pain type: unspecified Qualified Code(s): R07.9 - Chest pain, unspecified (2) SVT (supraventricular tachycardia) Current Visit: Yes Status: Acute Patient has history of SVT controlled with BB. Repeat EKG is NSR. She is asymptomatic today. 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 (3) Seizure Current Visit: Yes Status: Acute The patient's last seizure was 3 weeks ago and she is currently on Gabapentin. Her neurologist is Dr. Avalos and she reports seizures due to hypoglycemia in the past. CT Head negative. Continue anti-seizure medications. Patient is to follow-up with Dr. Avalos on Friday. (4) Headache Current Visit: Yes Status: Acute Patient complaints of headache with right side neck pain. Head CT negative. MARTINEZ is likely secondary to seizure (patient reports jerking head during seizure). Sx 's improved with Oxycodone. Primary team plans to provide 1 week rx at discharge with outpatient follow-up Qualifiers: Qualified Code(s): R51 - Headache Discussion w patient/family: The assessment and plan as outlined above was discussed with the patient and/or family members who expressed understanding and agreement. All questions were answered. Thank you for involving us in the care of your patient. Please call with any questions. Subjective Principal diagnosis: clonic-tonic seizure Interval history: Patient's metoprolol was held this a.m. due to episodes of hypotension and bradycardia. Patient denies fever, chills, fatigue, weakness, dizziness, lightheadedness, diaphoresis, memory loss, vision changes, palpitations, chest pain, SOB, cough, nausea, vomiting, diarrhea, constipation, swelling, difficulty voiding. She admits to BM last night. She reports that she prefers to have stress test done outpatient. She will follow up with her neurologist for seizure control. She complains of same neck and bilateral shoulder pain as yesterday. She has no further complaints. Objective Vital Signs, Last 4 Hours Temp Pulse Resp BP Pulse Ox 04/09/17 11:02 98.2 F 62 16 108/72 96 General: Conversant, No Apparent Distress HEENT: Atraumatic, Normocephaly, Mucus Membranes Moist Neck: No JVD, Normal carotid pulses Cardiac: Reg Rate and Rhythm, Normal S1 and S2, No Murmur Lungs: Normal Breath Sounds, No Wheeze, Rales, Rhonchi Neuro: Alert and responsive, No focal deficits noted Abdomen: Soft, Non-Tender Skin: No rashes noted on visualized skin Musculoskeletal: No Chest Wall Tenderness Extremities: No Clubbing, No Cyanosis, No Edema, Normal Pulses Results 04/09/17 06:01 04/09/17 06:01 Lab Results 04/08/17 04/09/17 04/09/17 11:02 06:01 06:01 WBC 3.8 L Hgb 10.2 L Hct 32.3 L Plt Count 154 APTT 64.7 H Sodium 140 Potassium 3.9 Chloride 109 Carbon Dioxide 26 BUN 14 Creatinine 0.70 Glucose 77 Calcium 8.1 L Total Bilirubin 0.3 AST 9 ALT 10 Alkaline Phosphatase 62 Consult Discharge Plan - Plan Referrals: Holger Avalos MD [Partnered Physician] - (appointment has been webrequested. Our offices will call you with a follow up appointment time and date. Thank You) Nando Brunson DO [Primary Care Provider] - 04/29/17 9:15 am Prescriptions: Oxycodone HCl [Oxaydo] 5 mg PO BID PRN #14 tablet.orl PRN Reason: Pain
--- NOTE | 2017-04-09 11:30 | Discharge Summary ---
Date of Encounter: 04/09/17 Time of Encounter: 11:15 - Discharge Diagnosis (1) Chest pain Priority: Primary Status: Acute Comments: Maci Bray's 41-year-old female with past medical history gastric bypass, seizure disorder and s/p open heart surgery secondary to fractured IVC filter who presented to [facility] on 04/08/2017 after having a seizure and with complaints of chest pain. She was placed in observation status for neurology evaluation and ACS rule out. She was evaluated by Neurology who recommended continuing home AED regimen. She was also evaluated by Cardiology who did not feel chest pain was cardiac in etiology. She was discharged home in stable condition with outpatient follow-up. 1. Chest pain: presented with chest pain that started after seizure. CXR nonacute. Serial troponins negative. EKG revealed less than or equal to [address] elevation in lead 3, aVF, V5, V6. Cardiology consulted in ED who did not feel met STEMI criteria. ASA given on arrival and started on heparin gtt started. Evaluated by cardiology who suspected chest pain was noncardiac in etiology; cardiology discussed possible stress test with patient however patient declined and preferred to have it done outpatient. Suspect chest pain is musculoskeletal secondary to body tension, jerking with tonic-clonic seizure. Chest pain is reproducible on exam. 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 Seizure disorder: per hx. follows with neurology. Gabapentin dose decrease to twice a day (supposed to be 3 times a day however sedating therefore patient he creased dose). Now with 2 breakthrough seizures in the 3 weeks prior to presentation. Evaluated by Dr. Jacobo (neurology) discussed case with Dr. Avalos ( patient's neurologist) Recommended continuing current medication regimen with outpatient follow-up. No seizure recurrence while inpatient. 3. Headache: with right side neck pain. Head CT negative. C-spine x-ray negative. Likely secondary to seizure (patient reports jerking head during seizure). Sx's improved with headache cocktail and Oxycodone. Will provide 1 week rx of OxyIR at discharge with outpatient follow-up 4. SVT: per hx. Cont home BB with hold parameters (has been intermittently bradycardic and BP borderline/soft). Follow-up with PCP, Cardiology outpatient 5. Hx open-heart surgery: Patient had prophylatic IVC filter placed in 2009 during gastric bypass surgery. Details unclear but underwent fluoroscopy at [facility] 08/2015 which confirmed presence of intracardiac foreign body. She was transferred to [facility] and underwent a median sternotomy and removal of intracardiac foreign body on by Dr. Traylor. Recommend outpatient follow -up as previously planned Qualifiers: Chest pain type: unspecified Qualified Code(s): R07.9 - Chest pain, unspecified (2) Seizure Priority: Primary Status: Acute (3) SVT (supraventricular tachycardia) Priority: Primary Status: Acute - Discharge Medications Prescriptions: Oxycodone HCl [Oxaydo] 5 mg PO BID PRN #14 tablet.orl PRN Reason: Pain Home Medications: Gabapentin [Neurontin] 300 mg PO BID 04/07/17 [History] Omeprazole [PriLOSEC] 20 mg PO DAILY 04/07/17 [History] Metoprolol XL (24 HR) Succ [Toprol Xl] 25 mg PO DAILY #0 04/09/17 [Rx] Oxycodone HCl [Oxaydo] 5 mg PO BID PRN #14 tablet.orl 04/09/17 [Rx] Allergies/Adverse Reactions: 3 Allergy/AdvReac Type Severity Reaction Status Date / Time phenazopyridine Allergy Rash Verified 09/01/15 14:27 [From Pyridium] sulfamethoxazole Allergy Rash Verified 09/01/15 14:27 [From Bactrim] trimethoprim [From Bactrim] Allergy Rash Verified 09/01/15 14:27 NSAIDS (Non-Steroidal AdvReac See Verified 09/01/15 14:27 Anti-Inflamma Comments Procedures/tests Complete & Pending: Procedures Performed prior 72 hours Category Date Time Status CT head/brain wo con [CT] Stat Cat Scan 04/07/17 21:38 Completed ECG 12 lead ECG [ECG] Routine Y 04/07/17 18:22 Completed Date of admission: 04/07/17 20:01 Primary care physician: Nando Brunson Consults: 04/07/17 21:41 Consult to Neurology [CONS] Routine Consulting Provider: Neurology [facility] Reason for Consult: Seizure, taking Neurotin, Patient of Dr. Avalos Call Completed: No 04/07/17 23:14 Consult to Cardiology [CONS] Routine Comment: Consulting Provider: Cardiology [facility] Reason for Consult: ST-segment elevation Call Completed: Yes Discharging clinician: Denise Sanchez Anticipated date of discharge: 04/09/17 - Patient Status Disposition: Home, Self-Care Functional capacity at discharge: independent ambulation Overall status at discharge: patient is progressing back to baseline - Discharge Instructions Follow Up With: Holger Avalos MD [Partnered Physician] - 04/14/17 9:30 am (appointment has been webrequested. Our offices will call you with a follow up appointment time and date. Thank You) Nando Brunson DO [Primary Care Provider] - 04/29/17 9:15 am - Diet and Activity Activity: resume usual activities as tolerated Diet: advance to your usual diet Interval History: Seen and examined at bedside, says she feels better but still having right sided neck pain and headache. Her says she jerked her head to the right during her seizure. Patient says she does not want to take flexeril because it is too sedating. Says OxyIR helped yesterday. She wants to go home today. No CP , no SOB, no ABD pain. Hospital course: See assessment and plan for hospital course - Time Spent with Patient Total time spent providing and/or coordinating discharge services: Less than 30 minutes - Constitutional Vitals: Temp Pulse Resp BP Pulse Ox 98.2 F 62 16 108/72 96 04/09/17 11:02 04/09/17 11:02 04/09/17 11:02 04/09/17 11:02 04/09/17 11:02 General appearance: Present: cooperative, A&O X 3, pleasant, no acute distress, answers questions appropriately - Head Head exam: Present: atraumatic, normocephalic - Eye Eye exam: Present: PERRL, conjuntiva pink, sclera anicteric Pupils: Present: PERRL - Neck Neck exam general surgery: Present: supple, trachea midline. Absent: lymphadenopathy - Respiratory Respiratory exam: Present: CTAB. Absent: accessory muscle use, rales, rhonchi, wheezes - Cardiovascular Cardiovascular exam: Present: RRR, +S1, +S2. Absent: diastolic murmur, gallop, rubs, systolic murmur Additional comments: Tele: NSR - GI/Abdominal GI/Abdominal exam: Present: normal bowel sounds, soft, no peritoneal signs. Absent: distended, tenderness - Extremities Exam Extremities exam: Present: warm, radial pulses palpable and symmetrical. Absent : calf tenderness, cyanotic, pedal edema - Neurological Exam Neurological exam: Present: CN II-XII intact, oriented X3, no focal deficits. Absent: pronater drift, facial droop, speech deficit - Skin Skin exam: Present: dry, intact
[2017-04-09] MEDS ORDERED: Ketorolac 30 MG/ML VIAL IVP ONE (12:52)
[2017-04-09] MEDS ORDERED: Metoclopramide 10 MG/2 ML VIAL IVP ONE (12:52)
== END 2017-04-09 15:32 | disposition home or self-care (01) ==
LOC: EMEROO 16:26 → 3BNU 16:26
PROVIDERS: ADMIT Hospitalist; ATTEND Registered Nurse